=== PATIENT | male | born 1970 | race Caucasian/White ===

== ENCOUNTER 2020-12-11 17:47 | Emergency (ER) | payer OTHER ==
[~2020-12-11] VITALS: Ht 193 cm; Wt 90.7 kg
[2020-12-11] MEDS ORDERED: ACETAMINOPHEN 325 MG TABLET PO ONE (18:15)
[2020-12-11] MEDS ORDERED: IBUPROFEN 600 MG TABLET PO ONE (18:30)
[2020-12-11] MEDS ORDERED: SIMV10TA98 PO (18:44)
[2020-12-11] MEDS ORDERED: ASPI81TA31 PO (18:44)
[2020-12-11] MEDS ORDERED: IBUPROFEN 600 MG TABLET ONE (18:45)
[2020-12-11] MEDS ORDERED: IBUP-1955 PO (19:36)
[2020-12-11 19:45] VITALS: BP 125/77
--- NOTE | 2020-12-11 19:45 | NUR ---
Patient discharged to home in stable condition. Written and verbal after care instructions given. Patient verbalizes understanding of instructions. Stressed follow up or return to ER for worsening s/s.
== END 2020-12-11 19:46 | disposition home or self-care (01) ==
LOC: ER 17:53
DX: M76.61 Achilles tendinitis, right leg (principal); M92.8 Other specified juvenile osteochondrosis
CPT/HCPCS: 73630; A4663

== ENCOUNTER 2022-08-14 02:14 | Emergency (ER) | payer BC, OTHER ==
[~2022-08-14 02:14] MED LIST: ASPI81TA31 PO; IBUP-1955 PO; SIMV10TA98 PO
--- NOTE | 2022-08-14 02:18 | NUR ---
Patient was called to be triaged but was not present in the waiting room or outside of ER.
--- NOTE | 2022-08-14 02:28 | NUR ---
Patient was called to be triaged but was not present in the waiting room or outside of ER.
--- NOTE | 2022-08-14 02:44 | NUR ---
Patient was called to be triaged but was not present in the waiting room or outside of ER. PATIENT WAS NOT TRIAGED OR SEEN BY [facility].
== END 2022-08-14 02:46 | disposition left against medical advice (07) ==
LOC: ER 02:24
DX: Z53.21 Procedure and treatment not carried out due to patient leaving prior to being seen by health care provider (principal)